=== PATIENT | male | born 1960 | race Caucasian/White ===

== ENCOUNTER 2017-07-30 08:15 | Inpatient (IN) | payer OTHER ==
[~2017-07-30] VITALS: Ht 180.3 cm; Wt 73.4 kg
[~2017-07-30 08:15] MED LIST: NO HOME MEDS; PRILOSEC20 MG PO; PriLOSEC PO
[2017-07-30 08:49] LABS: HEMATOCRIT 41.9 % (38.0-50.0); MCH 34.5 PG (29.0-34.0); MCHC 36.8 G/DL (30.0-36.0); MCV 93.9 FL (86-99); MEAN PLAT.VOLUME 8.9 uM^3 (9.0-12.4); PLATELET COUNT 252 K/uL (156-360); RBC DIS.WIDTH-CV 11.4 % (11.8-14.6); RBC DIS.WIDTH-SD 39.4 % (39-53); RED BLOOD COUNT 4.46 M/uL (4.00-5.50); WHITE BLOOD COUNT 10.9 K/uL (4.1-10.2)
[2017-07-30 08:57] LABS: CHLORIDE 95 mEq/L (99-109); POTASSIUM 3.7 mEq/L (3.7-5.4); SODIUM 132 mEq/L (136-147)
[2017-07-30 09:00] LABS: GLUCOSE 129 mg/dL (70-99)
[2017-07-30 09:01] LABS: ANION GAP 12 MEQ/L (2-14)
[2017-07-30 09:03] LABS: ALKALINE PHOSPHATASE 369 IU/L (3-129); GFR ESTIMATE (CALCULATED) > 59 mL/min/ (58.99-99999)
[2017-07-30 09:04] LABS: UREA NITROGEN (BUN) 4 mg/dL (9-23)
[2017-07-30 09:32] LABS: ADD MIUA? YES; BILIRUBIN NEGATIVE; BLOOD SMALL; COLOR AMBER ((YELLOW)); GLUCOSE (STRIP) 50; KETONES 5; LEUKOCYTES NEGATIVE; NITRITE NEGATIVE; PROTEIN (STRIP) NEGATIVE
[2017-07-30 09:35] LABS: BACTERIA RARE /HPF; EPITHELIAL CELLS RARE /HPF; MUCUS TRACE /LPF; RED BLOOD CELLS 0-5 /HPF (0-5); UCUL ADDED? NO; WHITE BLOOD CELLS 0-5 /HPF (0-5)
[2017-07-30 13:10] LABS: LIPASE 12 U/L (1.0-51.0)
[2017-07-30 15:10] VITALS: BP 178/89
[2017-07-30 19:37] VITALS: BP 184/90
[2017-07-30 23:44] VITALS: BP 158/84
[2017-07-31] VITALS (7 sets, daily range): BP systolic 123–171; BP diastolic 66–98
[2017-07-31 06:24] LABS: EOSINOPHIL (%) 0.4 % (0-5); HEMATOCRIT 38.3 % (38.0-50.0); IMMATURE GRANULOCYTE (%) 0.4 % (0.0-0.7); INSTRUMENT ABS NEUTROPHIL CT 7.2 K/uL; LYMPHOCYTE COUNT 0.4 K/uL (1.0-2.8); MCH 33.7 PG (29.0-34.0); MCHC 34.2 G/DL (30.0-36.0); MEAN PLAT.VOLUME 9.4 uM^3 (9.0-12.4); MONOCYTE (%) 9.9 % (3-12); MONOCYTE COUNT 0.8 K/uL (0-0.8); NEUTROPHIL (%) 84.5 % (45-76); NEUTROPHIL COUNT 7.2 K/uL (1.8-6.4); PLATELET COUNT 216 K/uL (156-360); RBC DIS.WIDTH-SD 43.5 % (39-53); RED BLOOD COUNT 3.89 M/uL (4.00-5.50); WHITE BLOOD COUNT 8.5 K/uL (4.1-10.2)
[2017-07-31 06:38] LABS: MCV 98.5 FL (86-99)
[2017-07-31 06:38] LABS: ALKALINE PHOSPHATASE 343 IU/L (3-129); ANION GAP 9 MEQ/L (2-14); CHLORIDE 101 MEQ/L (99-109); GFR ESTIMATE (CALCULATED) > 59 mL/min/ (58.99-99999); GLUCOSE 138 mg/dL (70-99); LIPASE 29 U/L (1.0-51.0); POTASSIUM 3.9 MEQ/L (3.7-5.4); SAMPLE HEMOLYSIS CHECK 0; SAMPLE ICTERIC CHECK 2; SAMPLE LIPEMIA CHECK 0; SODIUM 137 MEQ/L (136-147); TOTAL BILIRUBIN 9.9 MG/DL (0.0-1.0); UREA NITROGEN (BUN) 5 mg/dL (9-23)
[2017-08-01 04:16] VITALS: BP 143/80
[2017-08-01 06:31] LABS: EOSINOPHIL (%) 2.3 % (0-5); EOSINOPHIL COUNT 0.1 K/uL (0-0.3); HEMATOCRIT 38.2 % (38.0-50.0); IMMATURE GRANULOCYTE (%) 0.4 % (0.0-0.7); INSTRUMENT ABS NEUTROPHIL CT 3.8 K/uL; LYMPHOCYTE COUNT 0.6 K/uL (1.0-2.8); MCH 34.2 PG (29.0-34.0); MCHC 34.6 G/DL (30.0-36.0); MEAN PLAT.VOLUME 9.7 uM^3 (9.0-12.4); MONOCYTE (%) 10.4 % (3-12); MONOCYTE COUNT 0.5 K/uL (0-0.8); NEUTROPHIL (%) 73.8 % (45-76); NEUTROPHIL COUNT 3.8 K/uL (1.8-6.4); PLATELET COUNT 186 K/uL (156-360); RBC DIS.WIDTH-SD 44.1 % (39-53); RED BLOOD COUNT 3.86 M/uL (4.00-5.50); WHITE BLOOD COUNT 5.1 K/uL (4.1-10.2)
[2017-08-01 06:58] LABS: ALKALINE PHOSPHATASE 316 IU/L (3-129); ANION GAP 8 MEQ/L (2-14); CHLORIDE 101 MEQ/L (99-109); GFR ESTIMATE (CALCULATED) > 59 mL/min/ (58.99-99999); GLUCOSE 108 mg/dL (70-99); HDL CHOLESTEROL 75 MG/DL (Desirable>=40); LDL CHOLESTEROL 68 mg/dL (Desirable<100); NON-HDL CHOLESTEROL 82 mg/dL (Desirable<160); POTASSIUM 3.4 MEQ/L (3.7-5.4); SAMPLE HEMOLYSIS CHECK 0; SAMPLE ICTERIC CHECK 2; SAMPLE LIPEMIA CHECK 0; SODIUM 137 MEQ/L (136-147); TOTAL BILIRUBIN 10.5 MG/DL (0.0-1.0); TOTAL CHOLESTEROL 157 mg/dL (Desirable<200); TRIGLYCERIDES 70 MG/DL (Normal: <150); UREA NITROGEN (BUN) 4 mg/dL (9-23)
[2017-08-01 07:31] VITALS: BP 151/89
[2017-08-01 11:02] VITALS: BP 168/92
[2017-08-01 20:08] VITALS: BP 171/101
[2017-08-01 23:52] VITALS: BP 145/81
[2017-08-02 04:01] VITALS: BP 156/96
[2017-08-02 05:52] LABS: BASOPHIL COUNT 0.1 K/uL (0-0.1); EOSINOPHIL (%) 2.7 % (0-5); EOSINOPHIL COUNT 0.1 K/uL (0-0.3); HEMATOCRIT 36.5 % (38.0-50.0); IMMATURE GRANULOCYTE (%) 0.4 % (0.0-0.7); INSTRUMENT ABS NEUTROPHIL CT 3.6 K/uL; LYMPHOCYTE COUNT 0.6 K/uL (1.0-2.8); MCH 34.4 PG (29.0-34.0); MCHC 35.1 G/DL (30.0-36.0); MCV 98.1 FL (86-99); MEAN PLAT.VOLUME 9.8 uM^3 (9.0-12.4); MONOCYTE (%) 15.5 % (3-12); MONOCYTE COUNT 0.8 K/uL (0-0.8); NEUTROPHIL COUNT 3.6 K/uL (1.8-6.4); PLATELET COUNT 185 K/uL (156-360); RBC DIS.WIDTH-CV 11.9 % (11.8-14.6); RBC DIS.WIDTH-SD 43.3 % (39-53); RED BLOOD COUNT 3.72 M/uL (4.00-5.50); WHITE BLOOD COUNT 5.2 K/uL (4.1-10.2)
[2017-08-02 06:32] LABS: ALKALINE PHOSPHATASE 257 IU/L (3-129); ANION GAP 10 MEQ/L (2-14); CHLORIDE 102 MEQ/L (99-109); GFR ESTIMATE (CALCULATED) > 59 mL/min/ (58.99-99999); GLUCOSE 113 mg/dL (70-99); SAMPLE HEMOLYSIS CHECK 0; SAMPLE ICTERIC CHECK 1; SAMPLE LIPEMIA CHECK 0; SODIUM 138 MEQ/L (136-147); TOTAL BILIRUBIN 4.7 MG/DL (0.0-1.0); UREA NITROGEN (BUN) 4 mg/dL (9-23)
[2017-08-02 08:03] VITALS: BP 141/86
[2017-08-02 11:24] LABS: HBSG INDEX 0.14
[2017-08-02 11:25] LABS: HPCA INDEX 0.07
[2017-08-02 11:26] LABS: ANTI-HEPATITIS A VIRUS (IGM) Nonreactive; ANTI-HEPATITIS B CORE (IGM) Nonreactive; HAV INDEX 0.11; HBC IgM INDEX 0.06
[2017-08-02 16:03] VITALS: BP 138/85
[2017-08-02] MEDS ORDERED: CLONIDINE1 EAC1 TD (19:54)
[2017-08-02] MEDS ORDERED: AMLODIPINE BESYL5 MG PO (19:54)
[2017-08-02] MEDS ORDERED: VALSARTAN160 MG PO (19:54)
[2017-08-02] MEDS ORDERED: TYLENOL REGULA325 MG PO (19:55)
[2017-08-02] MEDS ORDERED: PROTONIX IV40 MG PO (19:56)
[2017-08-02] MEDS ORDERED: K-DUR20 MEQ PO (20:20)
== END 2017-08-02 20:25 | disposition home or self-care (01) | DRG 444 ==
LOC: EME 08:15 → 3EAST 12:11 → EDOF 12:11 → ENRESERV 12:23 → 3EAST 14:55
PROVIDERS: Family Medicine Sports Medicine; Specialist
DX: K80.51 Calculus of bile duct without cholangitis or cholecystitis with obstruction (principal); K22.6 Gastro-esophageal laceration-hemorrhage syndrome; K70.9 Alcoholic liver disease, unspecified; E87.6 Hypokalemia; F10.10 Alcohol abuse, uncomplicated; I10 Essential (primary) hypertension; K21.9 Gastro-esophageal reflux disease without esophagitis; N43.3 Hydrocele, unspecified; F41.9 Anxiety disorder, unspecified; E78.5 Hyperlipidemia, unspecified; G43.909 Migraine, unspecified, not intractable, without status migrainosus
CPT/HCPCS: 74022; 74177; 74181; 74328; 80053; 80061; 80074; 81003; 83605; 83690; 85025; 85027; 87040; 87081; 88305; 90686; 99281; 99285; C1757; C9113; G0480; J0330; J0692; J1170; J1650; J2270; J2405; J7030; J7042; S0074

== ENCOUNTER 2017-10-06 19:25 | Inpatient (IN) | payer OTHER ==
[~2017-10-06] VITALS: Ht 180.3 cm; Wt 81.8 kg
[~2017-10-06 19:25] MED LIST changes: -PERCOCET 5/31 TABLET PO; -POTASSIUM CHLO20 ME2 PO; -TYLENOL EXTRA500 MG PO; -ZOFRAN4 MG PO
[2017-10-06 20:11] LABS: HEMATOCRIT 40.8 % (38.0-50.0); HEMOGLOBIN 14.3 G/DL (12.5-16.6); MCH 34.4 PG (29.0-34.0); MCV 98.1 FL (86-99); PLATELET COUNT 289 K/uL (156-360); RBC DIS.WIDTH-CV 11.9 % (11.8-14.6); RBC DIS.WIDTH-SD 43.3 % (39-53); RED BLOOD COUNT 4.16 M/uL (4.00-5.50); WHITE BLOOD COUNT 10.8 K/uL (4.1-10.2)
[2017-10-06 20:23] LABS: CHLORIDE 102 mEq/L (99-109); POTASSIUM 4.2 mEq/L (3.7-5.4); SODIUM 135 mEq/L (136-147)
[2017-10-06 20:26] LABS: GLUCOSE 160 mg/dL (70-99)
[2017-10-06 20:28] LABS: TOTAL BILIRUBIN 2.6 mg/dL (0.0-1.0)
[2017-10-06 20:29] LABS: ALKALINE PHOSPHATASE 195 IU/L (3-129); CREATININE 1.1 mg/dL (0.6-1.3); GFR ESTIMATE (CALCULATED) > 59 mL/min/ (58.99-99999)
[2017-10-06 20:31] LABS: AST (GOT) 90 IU/L (2-34); UREA NITROGEN (BUN) 8 mg/dL (9-23)
[2017-10-06 20:32] LABS: ALT (GPT) 44 IU/L (3-49)
[2017-10-06 22:51] LABS: APPEARANCE SL.HAZY ((CLEAR)); BILIRUBIN NEGATIVE; BLOOD NEGATIVE; COLOR YELLOW ((YELLOW)); GLUCOSE (STRIP) NEGATIVE; KETONES NEGATIVE; LEUKOCYTES NEGATIVE; NITRITE NEGATIVE; PROTEIN (STRIP) NEGATIVE; SPECIFIC GRAVITY 1.017 (1.000-1.030); UROBILINOGEN 0.2 MG/DL (0.2-1.0)
[2017-10-06 22:58] LABS: BACTERIA NONE SEEN /HPF; EPITHELIAL CELLS RARE /HPF; MUCUS TRACE /LPF; RED BLOOD CELLS 0-5 /HPF (0-5); UCUL ADDED? NO; WHITE BLOOD CELLS 0-5 /HPF (0-5)
[2017-10-07 01:18] LABS: LIPASE 350 U/L (1.0-51.0)
[2017-10-07] MEDS ORDERED: TYLENOL EXTRA500 MG PO (01:39)
[2017-10-07 11:44] LABS: HEMOGLOBIN 14.2 G/DL (12.5-16.6); MCH 35.2 PG (29.0-34.0); MCHC 35.5 G/DL (30.0-36.0); MCV 99.3 FL (86-99); PLATELET COUNT 269 K/uL (156-360); RBC DIS.WIDTH-CV 12.1 % (11.8-14.6); RBC DIS.WIDTH-SD 44.3 % (39-53); RED BLOOD COUNT 4.03 M/uL (4.00-5.50); WHITE BLOOD COUNT 15.1 K/uL (4.1-10.2)
[2017-10-07 11:48] LABS: ALBUMIN 3.7 g/dL (3.2-4.8)
[2017-10-07 11:49] LABS: CHLORIDE 105 mEq/L (99-109); SODIUM 135 mEq/L (136-147)
[2017-10-07 11:51] LABS: GLUCOSE 124 mg/dL (70-99); TOTAL PROTEIN 6.6 g/dL (6.4-8.3)
[2017-10-07 11:53] LABS: TOTAL BILIRUBIN 3.2 mg/dL (0.0-1.0)
[2017-10-07 11:54] LABS: ALKALINE PHOSPHATASE 149 IU/L (3-129)
[2017-10-07 11:55] LABS: CREATININE 0.9 mg/dL (0.6-1.3); GFR ESTIMATE (CALCULATED) > 59 mL/min/ (58.99-99999)
[2017-10-07 11:56] LABS: UREA NITROGEN (BUN) 8 mg/dL (9-23)
[2017-10-07 11:58] LABS: ALT (GPT) 31 IU/L (3-49); LIPASE 660 U/L (1.0-51.0)
[2017-10-07 12:00] LABS: AST (GOT) 41 IU/L (2-34)
[2017-10-07 15:00] VITALS: BP 142/88
[2017-10-07 19:49] VITALS: BP 157/88
[2017-10-07 23:48] VITALS: BP 150/87
[2017-10-08 03:45] VITALS: BP 165/92
[2017-10-08 07:11] LABS: BASOPHIL (%) 0.2 % (0-1); EOSINOPHIL (%) 0 % (0-5); HEMATOCRIT 37.6 % (38.0-50.0); HEMOGLOBIN 12.8 G/DL (12.5-16.6); IMMATURE GRANULOCYTE (%) 0.7 % (0.0-0.7); LYMPHOCYTE (%) 3.7 % (15-42); LYMPHOCYTE COUNT 0.5 K/uL (1.0-2.8); MCH 33.9 PG (29.0-34.0); MCV 99.5 FL (86-99); MONOCYTE (%) 8.8 % (3-12); MONOCYTE COUNT 1.2 K/uL (0-0.8); NEUTROPHIL (%) 86.6 % (45-76); NEUTROPHIL COUNT 11.6 K/uL (1.8-6.4); PLATELET COUNT 213 K/uL (156-360); RBC DIS.WIDTH-CV 12.1 % (11.8-14.6); RED BLOOD COUNT 3.78 M/uL (4.00-5.50); WHITE BLOOD COUNT 13.5 K/uL (4.1-10.2)
[2017-10-08 07:36] LABS: ALBUMIN 3.3 G/DL (3.2-4.8); ALKALINE PHOSPHATASE 91 IU/L (3-129); ALT (GPT) 16 IU/L (3-49); AST (GOT) 21 IU/L (2-34); CHLORIDE 104 MEQ/L (99-109); CREATININE 0.9 MG/DL (0.6-1.3); GFR ESTIMATE (CALCULATED) > 59 mL/min/ (58.99-99999); GLUCOSE 107 mg/dL (70-99); LIPASE 490 U/L (1.0-51.0); POTASSIUM 3.4 MEQ/L (3.7-5.4); SODIUM 137 MEQ/L (136-147); TOTAL BILIRUBIN 1.7 MG/DL (0.0-1.0); TOTAL PROTEIN 5.6 G/DL (6.4-8.3); UREA NITROGEN (BUN) 7 mg/dL (9-23)
[2017-10-08 08:23] VITALS: BP 140/82
[2017-10-08 12:19] VITALS: BP 137/78
[2017-10-08 17:10] VITALS: BP 145/88
[2017-10-08 23:48] VITALS: BP 165/85
[2017-10-09 05:35] LABS: BASOPHIL (%) 0.4 % (0-1); BASOPHIL COUNT 0.1 K/uL (0-0.1); EOSINOPHIL (%) 0.3 % (0-5); HEMATOCRIT 33.6 % (38.0-50.0); HEMOGLOBIN 11.5 G/DL (12.5-16.6); IMMATURE GRANULOCYTE (%) 0.5 % (0.0-0.7); LYMPHOCYTE (%) 6.3 % (15-42); LYMPHOCYTE COUNT 0.9 K/uL (1.0-2.8); MCH 33.6 PG (29.0-34.0); MCHC 34.2 G/DL (30.0-36.0); MCV 98.2 FL (86-99); MONOCYTE (%) 8.3 % (3-12); MONOCYTE COUNT 1.1 K/uL (0-0.8); NEUTROPHIL (%) 84.2 % (45-76); NEUTROPHIL COUNT 11.3 K/uL (1.8-6.4); PLATELET COUNT 204 K/uL (156-360); RBC DIS.WIDTH-SD 43.8 % (39-53); RED BLOOD COUNT 3.42 M/uL (4.00-5.50); WHITE BLOOD COUNT 13.5 K/uL (4.1-10.2)
[2017-10-09 06:01] LABS: ALBUMIN 2.9 G/DL (3.2-4.8); ALKALINE PHOSPHATASE 69 IU/L (3-129); ALT (GPT) 11 IU/L (3-49); AST (GOT) 18 IU/L (2-34); CHLORIDE 100 MEQ/L (99-109); CREATININE 0.8 MG/DL (0.6-1.3); GFR ESTIMATE (CALCULATED) > 59 mL/min/ (58.99-99999); GLUCOSE 107 mg/dL (70-99); SODIUM 134 MEQ/L (136-147); TOTAL BILIRUBIN 1.7 MG/DL (0.0-1.0); TOTAL PROTEIN 5.3 G/DL (6.4-8.3); UREA NITROGEN (BUN) 6 mg/dL (9-23)
[2017-10-09 06:27] LABS: LIPASE 138 U/L (1.0-51.0)
[2017-10-09 07:41] VITALS: BP 188/77
[2017-10-09 11:56] VITALS: BP 181/97
[2017-10-09] MEDS ORDERED: TYLENOL EXTRA500 MG PO (12:05)
[2017-10-09] MEDS ORDERED: PERCOCET 5/31 TABLET PO (12:05)
[2017-10-09] MEDS ORDERED: ZOFRAN4 MG PO (12:05)
[2017-10-09] MEDS ORDERED: POTASSIUM CHLO20 ME2 PO (12:25)
[2017-10-09 12:29] VITALS: BP 160/76
== END 2017-10-09 14:18 | disposition home or self-care (01) | DRG 440 ==
LOC: EME 19:25 → EDOF 10-07 02:40 → ENRESERV 10-07 03:07 → 3EAST 10-07 14:27 → ENPENDDIS 10-09 → 3EAST 10-09 14:18
PROVIDERS: Family Medicine Sports Medicine
DX: K85.80 Other acute pancreatitis without necrosis or infection (principal); Y84.8 Other medical procedures as the cause of abnormal reaction of the patient, or of later complication, without mention of misadventure at the time of the procedure; R93.2 Abnormal findings on diagnostic imaging of liver and biliary tract; I10 Essential (primary) hypertension; K21.9 Gastro-esophageal reflux disease without esophagitis; E78.5 Hyperlipidemia, unspecified; F10.10 Alcohol abuse, uncomplicated; K59.00 Constipation, unspecified; F41.9 Anxiety disorder, unspecified; Z90.49 Acquired absence of other specified parts of digestive tract
CPT/HCPCS: 74177; 74328; 80053; 81003; 83690; 85025; 85027; 87081; 88108; 88305; 88312; 93005; 99281; 99285; C1757; C9113; J0744; J1100; J1170; J1650; J2270; J2405; J2710; J3010; J7030; J7120

== ENCOUNTER → 2017-10-06 | Outpatient (CLI) | payer OTHER ==
[~2017-10-06] VITALS: Ht 180.3 cm; Wt 79.4 kg
[~2017-10-06] MED LIST changes: +AMLODIPINE BESYL5 MG PO; +CATAPRES0.2 MG PO; +CLONIDINE1 EAC1 TD; +COZAAR100 MG PO; +K-DUR20 MEQ PO; +NORVASC5 MG PO; +PERCOCET 5/31 TABLET PO; +POTASSIUM CHLO20 ME2 PO; +PROTONIX IV40 MG PO; +TYLENOL EXTRA500 MG PO; +TYLENOL REGULA325 MG PO; +VALSARTAN160 MG PO; +ZOFRAN4 MG PO
== END | disposition home or self-care (01) ==
LOC: AMB 10:45
DX: K80.50 Calculus of bile duct without cholangitis or cholecystitis without obstruction (principal)
CPT/HCPCS: 74328; 87081; 88108; 88305; 88312; 93005; C1757; J0744; J1100; J2405; J2710; J3010